=== PATIENT | male | born 1985 | race Hispanic/Latino ===

== ENCOUNTER 2017-08-03 17:16 | Emergency (ER) | payer BC, OTHER ==
[2017-08-03 17:59] LABS: BASO # 0.1 K/uL (0.0-0.2); BASO % 0.9 % (0.0-2.0); EOS # 0.2 K/uL (0.0-0.7); EOS % 3.2 % (0.0-4.0); LYMPH # 2.6 K/uL (1.0-4.3); LYMPH % 44.2 % (20.0-40.0); MEAN CELL VOLUME 90.6 fl (80.0-94.0); MEAN CORPUSCULAR HEMOGLOBIN 31.3 pg (27.0-31.0); MEAN CORPUSCULAR HGB CONC 34.6 g/dL (33.0-37.0); MEAN PLATELET VOLUME 9.1 fl (7.2-11.7); MONO # 0.6 K/uL (0.0-0.8); MONO % 9.5 % (0.0-10.0); NEUT # 2.4 K/uL (1.8-7.0); NEUT % 42.2 % (50.0-75.0); NRBC % 0.1 % (0.0-0.0); RBC 4.45 Mil/uL (4.40-5.90); RED CELL DISTRIBUTION WIDTH 12.1 % (11.5-14.5); WHITE BLOOD COUNT 5.8 K/uL (4.8-10.8)
[2017-08-03 18:19] LABS: BARBITURATES, UR NEGATIVE (NEGATIVE); BENZODIAZEPINES, UR NEGATIVE (NEGATIVE); OPIATES, UR NEGATIVE (NEGATIVE); PHENCYCLIDINE, UR NEGATIVE (NEGATIVE)
[2017-08-03 18:32] LABS: INR 1.1 (0.9-1.2); PROTHROMBIN TIME 11.9 Seconds (9.8-13.1)
[2017-08-03 18:34] LABS: ALB/GLOB RATIO 1.5 (1.0-2.1); ALBUMIN 4.8 g/dL (3.5-5.0); ALT/SGPT 31 U/L (21-72); AST/SGOT 34 U/L (17-59); BLOOD UREA NITROGEN 17 mg/dl (9-20); CALCIUM 9.5 mg/dL (8.4-10.2); GFR AFRICAN-AMERICAN > 60; GFR NON-AFRICAN AMERICAN > 60; MAGNESIUM 2.1 MG/DL (1.6-2.3)
--- NOTE | 2017-08-03 18:48 | ED PDOC ---
HPI:STROKE - Time Time: 17:25 - Onset Onset: Just prior to presenting - Timing Timing: Currently Symptomatic - Location Location: None Locate left: Upper extremity - Radiation Radiation: None - Associated Symptoms Associated symptoms:: Visual - Exacerbated by Exacerbated by:: Nothing - Relieved by Relieved by:: Nothing - Notes: Notes:: 46 year old male presents to the ED complaining of left hand numbness. The patient reports that about a half hour prior to arrival he began to experience left hand numbness he describes as a tingling sensation but states his symptoms resolved en route to the emergency room. He states that the symptoms initially started in the left thumb and then involved his 2 other fingers and then the entire hand before slowly resolving. The patient reports that for the past 2 years he has been experiencing intermittent blurry vision in both eyes, and this has occurred at least 5-6 times within these 2 years. He states that when this occurs it usually resolves slowly within a half hour and he further states that he experienced this blurry vision before his left had went numb. Patient states he has never experienced this left hand numbness before. He also goes on to state that he experienced the blurry vision while driving and he had to stop and let his drive for him. He report that after the blurry vision occurred he developed a frontal headache for which he took motrin. The patient reports that this is how his episodes have occurred in the past and he has not followed up with a doctor. Patient states that apart from these symptoms he does not wear glasses or contacts. Patient currently asymptomatic in the ED. PMD: [facility] NIHSS Stroke Scale - Date/Time Evaluation Performed Date Performed: 08/03/17 Time Performed: 17:25 When Was NIHSS Performed: Baseline - How Severe is the Stroke Level of Consciousness: 0=Alert LOC to Questions: 0=Both comments correct LOC to commands: 0=Obeys both correctly Best Gaze: 0=Normal Visual: 0=No visual loss Facial: 0=Normal Motor Arm - Left: 0=No drift Motor Arm - Right: 0=No drift Motor Leg - Left: 0=No drift Motor Leg - Right: 0=No drift Limb Ataxia: 0=Absent Sensory: 0=Normal Best Language: 0=No aphasia Dysarthia: 0=Normal articulation Extinction & Inattention (Neglect): 0=Normal, no object Score: 0 rTPA Inclusion/Exclusion - Refusal of Treatment Patient Refused Treatment: No - Inclusion Criteria for Altepase Patient is 18 years or Older: Yes The Clinical Diagnosis of Ischemic Stroke That is Causing a Potentially Disabling Neurological Deficit: No Time of Onset is Well Established to be Less Than 270 Minute Before Treatment Would Begin: Yes Risk/Benefit Discussed With Patient/Family Member Present: No - Exclusion Criteria for Altepase Uncontrolled Hypertension at Time of Treatment (Systolic BP above 185 or Diastolic BP above 110 mmHg): No Past Medical History Reviewed: Historical Data, Nursing Documentation, Vital Signs Vital Signs: Last Vital Signs Temp 98.0 F 08/03/17 17:21 Pulse 88 08/03/17 17:21 Resp 16 08/03/17 17:21 BP 144/75 08/03/17 17:21 Pulse Ox 100 08/03/17 17:21 - Medical History PMH: No Chronic Diseases - Surgical History Surgical History: No Surg Hx - Family History Family History: States: Diabetes (father), Other Other Family History: Cardiac Disease- Father - Living Arrangements Living Arrangements: With Family - Social History Current smoker - smoking cessation education provided: No Ex-Smoker (has not smoked in the last 12 months): No Alcohol: None Drugs: Denies - Immunization History Hx Influenza Vaccination: Yes - Allergies Allergies/Adverse Reactions: Allergies Allergy/AdvReac Type Severity Reaction Status Date / Time No Known Allergies Allergy Verified 08/03/17 17:20 Review of Systems ROS Statement: Except As Marked, All Systems Reviewed And Found Negative Eyes: Positive for: Vision Change (blurry vision b/l eyes) Neurological: Positive for: Numbness (left hand ) Physical Exam - Reviewed Nursing Documentation Reviewed: Yes Vital Signs Reviewed: Yes - Physical Exam Appears: Positive for: Non-toxic, No Acute Distress Head Exam: Positive for: ATRAUMATIC, NORMOCEPHALIC Skin: Positive for: Warm, Dry Eye Exam: Positive for: EOMI, PERRL. Negative for: Nystagmus ENT: Negative for: Pharyngeal Erythema, Tonsillar Exudate Neck: Positive for: Painless ROM, Supple Cardiovascular/Chest: Positive for: Regular Rate, Rhythm, Chest Non Tender. Negative for: Murmur Respiratory: Positive for: Normal Breath Sounds. Negative for: Rales, Rhonchi, Wheezing Gastrointestinal/Abdominal: Positive for: Soft. Negative for: Tenderness Back: Positive for: Normal Inspection. Negative for: Decreased ROM Extremity: Positive for: Normal ROM. 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 Negative for: Motor/Sensory Deficits, Aphasia, Facial Droop - Laboratory Results Result Diagrams: 08/03/17 17:56 08/03/17 17:56 - ECG ECG: Positive for: Interpreted By Me ECG Rhythm: Positive for: Normal QRS, Normal ST Segment, Sinus Rhythm O2 Sat by Pulse Oximetry: 100 (RA) Pulse Ox Interpretation: Normal Medical Decision Making Medical Decision Making: Initial Impression 32 year old male presenting with transient neurological deficit Differential: TIA, Electrolyte abnormality, brain, mass seizures, arrhythmia Initial Plan: * Type and Screen * CT Head w/o Contrast * CMP * Drug Screen * Magnesium * Phosphorous * Troponin 1 * CMP * Neurology consult * Udip * CBC * Partial Thromboplastin * Prothrobin Time * CBC * Reevaluation Discussed with Dr. Nayak neurology crown ironer who recommends hospitalization, MRI with contrast and further inpatient procedure for brain mass and seizure EXAM: CT Head Without Intravenous Contrast CLINICAL HISTORY: 32 years old, male; Signs and symptoms; Visual disturbance; Additional info: Blurry vision left hand parasthesias TECHNIQUE: Axial computed tomography images of the head/brain without intravenous contrast. All CT scans at this facility use one or more dose reduction techniques, viz.: automated exposure control; ma/kV adjustment per patient size (including targeted exams where dose is matched to indication; i.e. head); or iterative reconstruction technique. Coronal and sagittal reformatted images were created and reviewed. COMPARISON: No relevant prior studies available. FINDINGS: Brain: No hemorrhage. No significant white matter disease. No edema. Ventricles: No hydrocephalus. Bones: Skull is intact. Soft tissues: No acute abnormality as visualized. Sinuses: No acute sinusitis. Mastoid air cells: No mastoid effusion. IMPRESSION: No CT evidence of acute intracranial abnormality. MRI can provide more sensitive evaluation as needed. Thank you for allowing us to participate in the care of your patient. Dictated and Authenticated by: Fatmata Frausto MD 08/03/2017 6:57 PM Eastern Time ([place] & [place]) Labs unremarkable. On reeval pt's exam unchanged. DW pt findings and plan of care. Documented by Rosmery Irwin acting as a scribe for Lilibeth Hoyt MD. All medical record entries made by the Scribe were at my direction and personally dictated by me. I have reviewed the chart and agree that the record accurately reflects my personal performance of the history, physical exam, medical decision making, and the department course for this patient. I have also personally directed, reviewed, and agree with the discharge instructions and disposition. Disposition - Clinical Impression Clinical Impression: Blurry vision, bilateral, Left hand paresthesia Counseled Patient/Family Regarding: Studies Performed, Diagnosis - Disposition Disposition Time: 17:00 Condition: GUARDED - Pt Status Changed To: Hospital Disposition Of: Inpatient - Admit Certification Admit to Inpatient:: After my assessment, the patient will require hospitalization for at least two midnights. This is because of the severity of symptoms shown, intensity of services needed, and/or the medical risk in this patient being treated as an outpatient. - POA Present On Arrival: None
[2017-08-04 06:49] VITALS: BP 123/70; TEMP 97.4; O2SAT 97
[2017-08-04 07:52] VITALS: PULSE 54; RESP 12
--- NOTE | 2017-08-04 08:33 | CT ---
PROCEDURE: CT HEAD WITHOUT CONTRAST. HISTORY: blurry vision LEFT hand parasthesias COMPARISON: None available. TECHNIQUE: Axial computed tomography images were obtained through the head/brain without intravenous contrast. Radiation dose: Total exam DLP = 987.09 mGy-cm. This CT exam was performed using one or more of the following dose reduction techniques: Automated exposure control, adjustment of the mA and/or kV according to patient size, and/or use of iterative reconstruction technique. FINDINGS: HEMORRHAGE: No intracranial hemorrhage. BRAIN: No mass effect or edema. No atrophy or chronic microvascular ischemic changes. VENTRICLES: Unremarkable. No hydrocephalus. CALVARIUM: Unremarkable. PARANASAL SINUSES: Unremarkable as visualized. No significant inflammatory changes. MASTOID AIR CELLS: Unremarkable as visualized. No inflammatory changes. OTHER FINDINGS: None. IMPRESSION: No intracranial mass, hemorrhage or evidence of acute infarct. Unremarkable examination. Preliminary interpretation of this examination was reported by [facility] at 6:57 p.m. on 08/03/2017. There is concurrence of this report with the preliminary interpretation.
[2017-08-04 08:37] LABS: BASO % 0.9 % (0.0-2.0); EOS # 0.1 K/uL (0.0-0.7); EOS % 2.5 % (0.0-4.0); HEMOGLOBIN 13.5 g/dL (12.0-18.0); LYMPH # 1.8 K/uL (1.0-4.3); LYMPH % 38.1 % (20.0-40.0); MEAN CELL VOLUME 92.1 fl (80.0-94.0); MEAN CORPUSCULAR HEMOGLOBIN 30.4 pg (27.0-31.0); MEAN PLATELET VOLUME 9.4 fl (7.2-11.7); MONO # 0.5 K/uL (0.0-0.8); MONO % 10.4 % (0.0-10.0); NEUT # 2.2 K/uL (1.8-7.0); NEUT % 48.1 % (50.0-75.0); NRBC % 0.1 % (0.0-0.0); RBC 4.43 Mil/uL (4.40-5.90); RED CELL DISTRIBUTION WIDTH 12.1 % (11.5-14.5); WHITE BLOOD COUNT 4.6 K/uL (4.8-10.8)
[2017-08-04 08:57] LABS: BLOOD UREA NITROGEN 15 mg/dl (9-20)
[2017-08-04 08:58] LABS: ALBUMIN 4.3 g/dL (3.5-5.0); CALCIUM 9.4 mg/dL (8.4-10.2); GFR AFRICAN-AMERICAN > 60; GFR NON-AFRICAN AMERICAN > 60
[2017-08-04 08:59] LABS: ALB/GLOB RATIO 1.4 (1.0-2.1); ALT/SGPT 31 U/L (21-72); AST/SGOT 29 U/L (17-59)
--- NOTE | 2017-08-04 09:33 | CP.PCM.HP ---
History of Present Illness - History of Present Illness History of Present Illness: pt admitted for recurrent neuro deficits. most recent yesterday when he got a headache accompanied w/ blurred vision and left hand paresthesia. all resolved by arriving at ER. all bw nad ct noted. pt is pending mri/eeg/neuro consult. no complaints at present. states all neuro deficits occur w/ headache and they are intermittent. states this week has drank more preworkout shakes w/ caffeine. Present on Admission - Present on Admission Any Indicators Present on Admission: No Review of Systems - EENT Eyes: As Per HPI, Blurred Vision - Neurological Neurological: As Per HPI, Headaches, Paresthesias Past Patient History - Past Social History Alcohol: None Drugs: Denies - PSYCHIATRIC Hx Substance Use: No - SURGICAL HISTORY Hx Surgeries: No - ANESTHESIA Hx Anesthesia: No Meds Allergies/Adverse Reactions: Allergies Allergy/AdvReac Type Severity Reaction Status Date / Time No Known Allergies Allergy Verified 08/03/17 17:20 Physical Exam - Constitutional Appears: Well, Non-toxic, No Acute Distress - Head Exam Head Exam: ATRAUMATIC, NORMAL INSPECTION, NORMOCEPHALIC - Eye Exam Eye Exam: EOMI, Normal appearance, PERRL Pupil Exam: NORMAL ACCOMODATION, PERRL - ENT Exam ENT Exam: Mucous Membranes Moist, Normal Exam - Neck Exam Neck exam: Positive for: Normal Inspection - Respiratory Exam Respiratory Exam: Clear to Auscultation Bilateral, NORMAL BREATHING PATTERN - Cardiovascular Exam Cardiovascular Exam: REGULAR RHYTHM, RRR, +S1, +S2 - GI/Abdominal Exam GI & Abdominal Exam: Normal Bowel Sounds, Soft. absent: Tenderness - Extremities Exam Extremities exam: Positive for: full ROM, normal capillary refill, normal inspection, pedal pulses present - Back Exam Back exam: NORMAL INSPECTION - Neurological Exam Neurological exam: Alert, CN II-XII Intact, Normal Gait, Oriented x3, Reflexes Normal - Psychiatric Exam Psychiatric exam: Normal Affect, Normal Mood - Skin Skin Exam: Dry, Intact, Normal Color, Warm Results - Vital Signs Recent Vital Signs: Last Vital Signs Temp 97.4 F L 08/04/17 07:21 Pulse 54 L 08/04/17 07:21 Resp 12 08/04/17 07:21 BP 123/70 08/04/17 06:48 Pulse Ox 97 08/04/17 07:21 - Labs Result Diagrams: 08/04/17 05:50 08/04/17 05:50 Labs: Laboratory Results - last 24 hr 08/03/17 08/03/17 08/03/17 17:33 17:56 17:56 WBC 5.8 RBC 4.45 Hgb 14.0 Hct 40.3 MCV 90.6 MCH 31.3 H MCHC 34.6 RDW 12.1 Plt Count 245 MPV 9.1 Neut % (Auto) 42.2 L Lymph % (Auto) 44.2 H [place] % (Auto) 9.5 Eos % (Auto) 3.2 Baso % (Auto) 0.9 Neut # (Auto) 2.4 Lymph # (Auto) 2.6 [place] # (Auto) 0.6 Eos # (Auto) 0.2 Baso # (Auto) 0.1 PT INR APTT Sodium 141 Potassium 3.6 Chloride 102 Carbon Dioxide 28 Anion Gap 15 BUN 17 Creatinine 1.1 Est GFR ( Amer) > 60 Est GFR (Non-Af Amer) > 60 POC Glucose (mg/dL) 94 Random Glucose 95 Calcium 9.5 Phosphorus 3.4 Magnesium 2.1 Total Bilirubin 0.7 AST 34 ALT 31 Alkaline Phosphatase 52 Troponin I 0.0200 Total Protein 7.9 Albumin 4.8 Globulin 3.1 Albumin/Globulin Ratio 1.5 Urine Opiates Screen Urine Methadone Screen Ur Barbiturates Screen Ur Phencyclidine Scrn Ur Amphetamines Screen U Benzodiazepines Scrn U Oth Cocaine Metabols U Cannabinoids Screen Blood Type Blood Type Confirm Antibody Screen BBK History Checked 08/03/17 08/03/17 08/03/17 17:56 17:56 18:00 WBC RBC Hgb Hct MCV MCH MCHC RDW Plt Count MPV Neut % (Auto) Lymph % (Auto) [place] % (Auto) Eos % (Auto) Baso % (Auto) Neut # (Auto) Lymph # (Auto) [place] # (Auto) Eos # (Auto) Baso # (Auto) PT 11.9 INR 1.1 APTT 37.0 Sodium Potassium Chloride Carbon Dioxide Anion Gap BUN Creatinine Est GFR ( Amer) Est GFR (Non-Af Amer) POC Glucose (mg/dL) Random Glucose Calcium Phosphorus Magnesium Total Bilirubin AST ALT Alkaline Phosphatase Troponin I Total Protein Albumin Globulin Albumin/Globulin Ratio Urine Opiates Screen Negative Urine Methadone Screen Negative Ur Barbiturates Screen Negative Ur Phencyclidine Scrn Negative Ur Amphetamines Screen Negative U Benzodiazepines Scrn Negative U Oth Cocaine Metabols Negative U Cannabinoids Screen Negative Blood Type O POSITIVE Blood Type Confirm Antibody Screen Negative BBK History Checked No verified bt 08/03/17 08/04/17 08/04/17 20:10 05:50 05:50 WBC 4.6 L RBC 4.43 Hgb 13.5 Hct 40.8 MCV 92.1 MCH 30.4 MCHC 33.0 RDW 12.1 Plt Count 229 MPV 9.4 Neut % (Auto) 48.1 L Lymph % (Auto) 38.1 [place] % (Auto) 10.4 H Eos % (Auto) 2.5 Baso % (Auto) 0.9 Neut # (Auto) 2.2 Lymph # (Auto) 1.8 [place] # (Auto) 0.5 Eos # (Auto) 0.1 Baso # (Auto) 0.0 PT INR APTT Sodium 143 Potassium 4.6 Chloride 105 Carbon Dioxide 26 Anion Gap 17 BUN 15 Creatinine 1.1 Est GFR ( Amer) > 60 Est GFR (Non-Af Amer) > 60 POC Glucose (mg/dL) Random Glucose 93 Calcium 9.4 Phosphorus Magnesium Total Bilirubin 0.5 AST 29 ALT 31 Alkaline Phosphatase 43 Troponin I Total Protein 7.3 Albumin 4.3 Globulin 3.0 Albumin/Globulin Ratio 1.4 Urine Opiates Screen Urine Methadone Screen Ur Barbiturates Screen Ur Phencyclidine Scrn Ur Amphetamines Screen U Benzodiazepines Scrn U Oth Cocaine Metabols U Cannabinoids Screen Blood Type Blood Type Confirm O POSITIVE Antibody Screen BBK History Checked Assessment & Plan (1) DVT prophylaxis Assessment and Plan: scd and aehose Status: Acute (2) Blurry vision, bilateral Assessment and Plan: appears like migraine d/o pending eeg/neuro/mri pt wishes to sign ama r/t no tests able to be completed today. advised risks/benefitis of ama states will f/u in office in am, rted prn, meds per med rec neuro aware Status: Acute (3) Left hand paresthesia Assessment and Plan: see other plan Status: Acute - Assessment and Plan (Free Text) Assessment: no s/s at present. moving all ext 5/5, no headache/blurred vision Decision To Admit - Pt Status Changed To: Hospital Disposition Of: Inpatient - Admit Certification Admit to Inpatient:: After my assessment, the patient will require hospitalization for at least two midnights. This is because of the severity of symptoms shown, intensity of services needed, and/or the medical risk in this patient being treated as an outpatient. - . Bed Request Type: Telemetry Admitting Physician: Dejan Hoffman
--- NOTE | 2017-08-04 10:31 | CP.PCM.DIS ---
Provider - Provider Date of Admission: 08/03/17 19:06 Attending physician: Dejan Hoffman MD Time Spent in preparation of Discharge (in minutes): 15 Diagnosis - Discharge Diagnosis (1) DVT prophylaxis Status: Acute (2) Blurry vision, bilateral Status: Acute (3) Left hand paresthesia Status: Acute Hospital Course - Lab Results Lab Results: Most Recent Lab Values WBC 4.6 K/uL (4.8-10.8) L 08/04/17 05:50 RBC 4.43 Mil/uL (4.40-5.90) 08/04/17 05:50 Hgb 13.5 g/dL (12.0-18.0) 08/04/17 05:50 Hct 40.8 % (35.0-51.0) 08/04/17 05:50 MCV 92.1 fl (80.0-94.0) 08/04/17 05:50 MCH 30.4 pg (27.0-31.0) 08/04/17 05:50 MCHC 33.0 g/dL (33.0-37.0) 08/04/17 05:50 RDW 12.1 % (11.5-14.5) 08/04/17 05:50 Plt Count 229 K/uL (130-400) 08/04/17 05:50 MPV 9.4 fl (7.2-11.7) 08/04/17 05:50 Neut % (Auto) 48.1 % (50.0-75.0) L 08/04/17 05:50 Lymph % (Auto) 38.1 % (20.0-40.0) 08/04/17 05:50 [place] % (Auto) 10.4 % (0.0-10.0) H 08/04/17 05:50 Eos % (Auto) 2.5 % (0.0-4.0) 08/04/17 05:50 Baso % (Auto) 0.9 % (0.0-2.0) 08/04/17 05:50 Neut # (Auto) 2.2 K/uL (1.8-7.0) 08/04/17 05:50 Lymph # (Auto) 1.8 K/uL (1.0-4.3) 08/04/17 05:50 [place] # (Auto) 0.5 K/uL (0.0-0.8) 08/04/17 05:50 Eos # (Auto) 0.1 K/uL (0.0-0.7) 08/04/17 05:50 Baso # (Auto) 0.0 K/uL (0.0-0.2) 08/04/17 05:50 PT 11.9 Seconds (9.8-13.1) 08/03/17 17:56 INR 1.1 (0.9-1.2) 08/03/17 17:56 APTT 37.0 Seconds (25.6-37.1) 08/03/17 17:56 Sodium 143 mmol/l (132-148) 08/04/17 05:50 Potassium 4.6 MMOL/L (3.6-5.0) 08/04/17 05:50 Chloride 105 mmol/L (98-107) 08/04/17 05:50 Carbon Dioxide 26 mmol/L (22-30) 08/04/17 05:50 Anion Gap 17 (10-20) 08/04/17 05:50 BUN 15 mg/dl (9-20) 08/04/17 05:50 Creatinine 1.1 mg/dl (0.8-1.5) 08/04/17 05:50 Est GFR ( Amer) > 60 08/04/17 05:50 Est GFR (Non-Af Amer) > 60 08/04/17 05:50 POC Glucose (mg/dL) 94 mg/dL (65-110) 08/03/17 17:33 Random Glucose 93 mg/dL (75-110) 08/04/17 05:50 Calcium 9.4 mg/dL (8.4-10.2) 08/04/17 05:50 Phosphorus 3.4 mg/dl (2.5-4.5) 08/03/17 17:56 Magnesium 2.1 MG/DL (1.6-2.3) 08/03/17 17:56 Total Bilirubin 0.5 mg/dl (0.2-1.3) 08/04/17 05:50 AST 29 U/L (17-59) 08/04/17 05:50 ALT 31 U/L (21-72) 08/04/17 05:50 Alkaline Phosphatase 43 U/L (38-126) 08/04/17 05:50 Troponin I 0.0200 ng/mL (0.00-0.120) 08/03/17 17:56 Total Protein 7.3 G/DL (6.3-8.2) 08/04/17 05:50 Albumin 4.3 g/dL (3.5-5.0) 08/04/17 05:50 Globulin 3.0 gm/dL (2.2-3.9) 08/04/17 05:50 Albumin/Globulin Ratio 1.4 (1.0-2.1) 08/04/17 05:50 Urine Opiates Screen Negative (NEGATIVE) 08/03/17 18:00 Urine Methadone Screen Negative (NEGATIVE) 08/03/17 18:00 Ur Barbiturates Screen Negative (NEGATIVE) 08/03/17 18:00 Ur Phencyclidine Scrn Negative (NEGATIVE) 08/03/17 18:00 Ur Amphetamines Screen Negative (NEGATIVE) 08/03/17 18:00 U Benzodiazepines Scrn Negative (NEGATIVE) 08/03/17 18:00 U Oth Cocaine Metabols Negative (NEGATIVE) 08/03/17 18:00 U Cannabinoids Screen Negative (NEGATIVE) 08/03/17 18:00 Blood Type O POSITIVE 08/03/17 17:56 Blood Type Confirm O POSITIVE 08/03/17 20:10 Antibody Screen Negative 08/03/17 17:56 BBK History Checked No verified bt 08/03/17 17:56 - Hospital Course Hospital Course: ct head, bw, ekg, tele monitor Discharge Exam - Head Exam Head Exam: ATRAUMATIC, NORMAL INSPECTION, NORMOCEPHALIC Discharge Plan - Follow Up Plan Condition: GUARDED Disposition: AGAINST MEDICAL ADVICE Additional Instructions: pt wishes to sign ama r/t no tests able to be completed today. advised risks/benefitis of ama states will f/u in office in am, rted prn, meds per med rec final dx-headache w/ neuro deficits advised that we cannot offer compelted dx as mri/eeg note completed. verbalized understanding of all
--- NOTE | 2017-08-04 10:48 | CARD ---
APPROVED REPORT EKG Measurement Heart [id number] <Conclusion> Sinus bradycardia with 1st degree AV block Otherwise normal ECG
== END 2017-08-04 09:55 | disposition left against medical advice (07) | DRG 103 ==
LOC: H.ER 17:16 → H.ERHOLD 19:06 → UNDOADMIN 19:06 → UNDODISIN 08-04 09:55
DX: R51 Headache (principal); H53.8 Other visual disturbances; R20.2 Paresthesia of skin